=== PATIENT | male | born 1995 | race Native Hawaiian/Other Pacific Islander ===

== ENCOUNTER 2021-02-15 07:23 | Outpatient (CLI) | payer BC ==
--- NOTE | 2021-02-15 09:38 | Ultrasound Report ---
ULTRASOUND SCROTUM INDICATION / CLINICAL INFORMATION: UNSPECIFIED ABDOMINAL PAIN R10.9. COMPARISON: None available. FINDINGS -- RIGHT TESTIS: Size = 3.6 x 4.2 x 2.0 cm. - Appearance: No significant abnormality. - Cyst or Mass: None. - Color Doppler Flow: No significant abnormality. EPIDIDYMIS: No significant abnormality. HYDROCELE: Small. VARICOCELE: None demonstrated. FINDINGS -- LEFT TESTIS: Size = 3.5 x 4.4 x 2.2 cm. - Appearance: No significant abnormality. - Cyst or Mass: None. - Color Doppler Flow: No significant abnormality. EPIDIDYMIS: No significant abnormality. HYDROCELE: Small. VARICOCELE: None demonstrated. ADDITIONAL FINDINGS: None. IMPRESSION: 1. Small bilateral simple appearing hydroceles without additional significant abnormality. Signer Name: Michele Logan MD Signed: 02/15/2021 9:34 AM Workstation Name: [id number]
== END 2021-02-15 07:24 | disposition home or self-care (01) ==
LOC: US 07:23
PROVIDERS: ATTEND Internal Medicine
DX: R10.9 Unspecified abdominal pain (principal)
CPT/HCPCS: 93975